=== PATIENT | male | born 1960 | race Caucasian/White ===

== ENCOUNTER 2022-11-04 18:52 | Inpatient (IN) | payer MEDICARE, MEDICAID ==
[~2022-11-04] VITALS: Ht 185.4 cm; Wt 154.7 kg
[2022-11-04] MEDS ORDERED: ACETAMINOPHEN 1000 MG/100 ML IV STA (19:20)
[2022-11-04] MEDS ORDERED: ACETAMINOPHEN 325 MG TAB PO ONE (19:45)
[2022-11-04 20:02] LABS: ALBUMIN 2.7 g/dL (3.5-5.0); ALBUMIN/GLOBULIN RATIO 0.5 (0.8-2.0); CALCIUM 9.5 mg/dL (8.4-10.2); CREATININE, SERUM 0.76 mg/dL (0.72-1.25)
[2022-11-04 20:13] LABS: BASOPHILS % 0.3 % (0.0-1.0); EOSINOPHILS # (AUTO) 0.1 (0.0-0.4); EOSINOPHILS % 0.8 % (0.0-6.0); HEMATOCRIT 37.5 % (38.2-49.6); LYMPHOCYTES # (AUTO) 4.2 (1.0-3.2); LYMPHOCYTES % 30.2 % (18.0-39.1); MEAN CORPUSCULAR HEMOGLOBIN 29.4 pg (28-32); MEAN CORPUSCULAR HGB CONC 29.3 g/dL (31-35); MEAN CORPUSCULAR VOLUME 100.3 fL (81-99); NEUTROPHILS # (AUTO) 8.5 (2.1-6.9); NEUTROPHILS % 61.1 % (38.7-80.0); PLATELET COUNT 273 x10e3/uL (140-360); RED BLOOD COUNT 3.74 x10e6/uL (4.3-5.7); RED CELL DISTRIBUTION WIDTH 15.2 % (11.7-14.4)
[2022-11-04] MEDS ORDERED: METHYLPREDNISOLONE SOD SUCC 40 MG/ML VIAL 1ML IV ONE (20:45)
[2022-11-04] MEDS ORDERED: DEXTROSE 50% SYRINGE 50 ML IV PRN (21:00)
[2022-11-04] MEDS ORDERED: SODIUM CHLORIDE FLUSH 10 ML SYR INJ PRN (21:00)
[2022-11-04] MEDS: INSULIN REGULAR, HUMAN 100 UNIT/1 ML SQ SCH (21:19)
[2022-11-04 22:00] VITALS: BP 129/67
[2022-11-04 22:34] VITALS: BP 129/67
[2022-11-04 23:41] VITALS: BP 129/67
[2022-11-04] MEDS: ALBUTEROL/IPRATROPIUM 3 ML NEB NEB SCH (23:45)
[2022-11-05] VITALS (7 sets, daily range): BP systolic 123–143; BP diastolic 54–70
[2022-11-05] MEDS: ALBUTEROL/IPRATROPIUM 3 ML NEB NEB SCH ×6 (02:15→22:55)
[2022-11-05] MEDS: INSULIN REGULAR, HUMAN 100 UNIT/1 ML SQ SCH ×4 (08:00→21:31)
[2022-11-05] MEDS ORDERED: ACETYLCYST200 MG/1 M NEB (08:01)
[2022-11-05] MEDS ORDERED: CYCLOBENZAPRINE10 MG PO (08:01)
[2022-11-05] MEDS ORDERED: LACTULOSE20 GM/30 M PO (08:01)
[2022-11-05] MEDS ORDERED: HYDROCODON-ACE1 EAC9 PO (08:01)
[2022-11-05] MEDS ORDERED: MULTIPLE VITAM1 EAC1 PO (08:01)
[2022-11-05] MEDS ORDERED: ZINC-22050 MG PO (08:01)
[2022-11-05] MEDS ORDERED: FUROSEMIDE40 MG PO (08:01)
[2022-11-05] MEDS ORDERED: FLOMAX0.4 MG PO (08:01)
[2022-11-05] MEDS ORDERED: TYLENOL325 MG PO (08:01)
[2022-11-05] MEDS ORDERED: FAMOTIDINE20 MG PO (08:01)
[2022-11-05] MEDS ORDERED: ONDANSETRON ODT4 MG PO (08:01)
[2022-11-05] MEDS ORDERED: NOVOLOG100 UNIT/1 SC (08:01)
[2022-11-05] MEDS ORDERED: ELIQUIS5 MG PO (08:01)
[2022-11-05] MEDS ORDERED: LANTUS 3ML100 UNITS/ SQ (08:01)
[2022-11-05] MEDS ORDERED: IPRAT-ALBUT 0.5-3 ML INH (08:01)
[2022-11-05] MEDS ORDERED: ATORVASTATIN CA20 MG PO (08:01)
[2022-11-05] MEDS ORDERED: MOVANTIK12.5 MG PO (08:01)
[2022-11-05] MEDS ORDERED: SENOKOT-S TABL1 EACH PO (08:01)
[2022-11-05] MEDS ORDERED: SODIUM CHLORIDE 0.9% 250ML 250 ML ONE (08:49)
[2022-11-05] MEDS ORDERED: PREDNISONE 20 MG TAB PO SCH (09:00)
[2022-11-05 09:49] LABS: BASOPHILS % 0.1 % (0.0-1.0); HEMATOCRIT 36.2 % (38.2-49.6); HEMOGLOBIN 10.6 g/dL (14.0-18.0); LYMPHOCYTES # (AUTO) 2.2 (1.0-3.2); LYMPHOCYTES % 21.2 % (18.0-39.1); MEAN CORPUSCULAR HEMOGLOBIN 29.5 pg (28-32); MEAN CORPUSCULAR HGB CONC 29.3 g/dL (31-35); MEAN CORPUSCULAR VOLUME 100.8 fL (81-99); MONOCYTES # (AUTO) 0.4 (0.2-0.8); MONOCYTES % 3.3 % (4.4-11.3); NEUTROPHILS # (AUTO) 7.8 (2.1-6.9); NEUTROPHILS % 74.5 % (38.7-80.0); PLATELET COUNT 253 x10e3/uL (140-360); RED BLOOD COUNT 3.59 x10e6/uL (4.3-5.7); RED CELL DISTRIBUTION WIDTH 14.8 % (11.7-14.4)
[2022-11-05 09:58] LABS: ALBUMIN 2.6 g/dL (3.5-5.0); ALBUMIN/GLOBULIN RATIO 0.5 (0.8-2.0); ANION GAP 14.1 mmol/L (8-16); CREATININE, SERUM 0.85 mg/dL (0.72-1.25)
[2022-11-05 10:09] LABS: POTASSIUM 5.1 mmol/L (3.5-5.1)
[2022-11-05] MEDS: DOCUSATE SODIUM 100 MG CAP PO SCH (10:12)
[2022-11-05] MEDS: SENNOSIDES 8.6 MG TAB PO SCH (10:12)
[2022-11-05] MEDS: APIXABAN 5 MG TABLET PO SCH ×2 (10:12→16:49)
[2022-11-05 10:23] LABS: CREATINE KINASE MB 1.7 ng/mL (0-5.0)
[2022-11-05] MEDS ORDERED: INSULIN REGULAR, HUMAN 100 UNIT/1 ML SQ ONE ×2 (10:30→14:30)
[2022-11-05] MEDS: HYDROCODONE/APAP 10MG-325MG TAB PO PRN (10:51)
[2022-11-05 15:54] LABS: CLARITY,URINE CLEAR (CLEAR); COLOR,URINE YELLOW (YELLOW); LEUKOCYTE ESTERASE ,URINE NEGATIVE (NEGATIVE); NITRITE,URINE NEGATIVE (NEGATIVE)
[2022-11-05 15:55] LABS: KETONES,URINE NEGATIVE (NEGATIVE); PROTEIN,URINE DIPSTICK NEGATIVE (NEGATIVE); URINE UROBILINOGEN 0.2 mg/dL (0.2 - 1)
[2022-11-05 16:12] LABS: EPITHELIAL CELLS,URINE FEW /LPF; WBC,URINE (MAN) 0-5 /HPF (0-5); YEAST,URINE FEW
[2022-11-05] MEDS: FAMOTIDINE 20 MG TAB PO SCH (16:49)
[2022-11-05] MEDS: FUROSEMIDE 40 MG TAB PO SCH (16:50)
[2022-11-05 17:38] LABS: CREATINE KINASE MB 1.6 ng/mL (0-5.0)
[2022-11-05] MEDS ORDERED: ATORVASTATIN 20 MG TAB PO SCH (21:00)
[2022-11-05] MEDS ORDERED: INSULIN GLARGINE 100 UNITS/ML VIAL SQ SCH (21:00)
[2022-11-05] MEDS ORDERED: TAMSULOSIN HCL 0.4 MG CAP PO SCH (21:00)
[2022-11-06] VITALS: BP 121/54
[2022-11-06] MEDS: ALBUTEROL/IPRATROPIUM 3 ML NEB NEB SCH ×3 (03:05→10:55)
[2022-11-06 04:00] VITALS: BP 131/63
[2022-11-06] MEDS: FUROSEMIDE 40 MG TAB PO SCH (05:45)
[2022-11-06 06:37] LABS: BASOPHILS % 0.3 % (0.0-1.0); EOSINOPHILS # (AUTO) 0.1 (0.0-0.4); EOSINOPHILS % 0.8 % (0.0-6.0); HEMATOCRIT 33.2 % (38.2-49.6); HEMOGLOBIN 9.6 g/dL (14.0-18.0); LYMPHOCYTES # (AUTO) 3.4 (1.0-3.2); LYMPHOCYTES % 39.7 % (18.0-39.1); MEAN CORPUSCULAR HEMOGLOBIN 29.1 pg (28-32); MEAN CORPUSCULAR HGB CONC 28.9 g/dL (31-35); MEAN CORPUSCULAR VOLUME 100.6 fL (81-99); MONOCYTES # (AUTO) 0.7 (0.2-0.8); MONOCYTES % 8.5 % (4.4-11.3); NEUTROPHILS # (AUTO) 4.3 (2.1-6.9); NEUTROPHILS % 50.2 % (38.7-80.0); PLATELET COUNT 238 x10e3/uL (140-360); RED CELL DISTRIBUTION WIDTH 14.7 % (11.7-14.4)
[2022-11-06 07:04] LABS: CALCIUM 8.8 mg/dL (8.4-10.2); CREATININE, SERUM 0.74 mg/dL (0.72-1.25)
[2022-11-06 07:30] LABS: CREATINE KINASE MB 1.5 ng/mL (0-5.0)
[2022-11-06] MEDS ORDERED: ACETAZOLAMIDE 250 MG TAB PO ONE (08:00)
[2022-11-06] MEDS ORDERED: ZITHROMAX500 MG PO (08:38)
[2022-11-06] MEDS ORDERED: IPRAT-ALBUT 0.5-3 ML NEB (08:41)
[2022-11-06] MEDS ORDERED: ALBUTEROL/IPRATROPIUM 3 ML NEB NEB PRN (08:45)
[2022-11-06] MEDS: FAMOTIDINE 20 MG TAB PO SCH (08:46)
[2022-11-06] MEDS: APIXABAN 5 MG TABLET PO SCH (08:47)
[2022-11-06] MEDS: DOCUSATE SODIUM 100 MG CAP PO SCH (08:48)
[2022-11-06] MEDS: SENNOSIDES 8.6 MG TAB PO SCH (08:48)
[2022-11-06] MEDS: INSULIN REGULAR, HUMAN 100 UNIT/1 ML SQ SCH ×2 (08:57→11:45)
[2022-11-06 08:58] VITALS: BP 120/64
[2022-11-06 09:00] VITALS: BP 120/64
[2022-11-06] MEDS ORDERED: AZITHROMYCIN 250 MG TAB PO SCH (09:00)
[2022-11-06 11:40] VITALS: BP 120/57
[2022-11-06] MEDS: HYDROCODONE/APAP 10MG-325MG TAB PO PRN (12:40)
== END 2022-11-06 13:11 | DRG 190 ==
LOC: ER 18:58 → ERHOLD 20:57 → MED/SURG3 11-05 01:10 → INTOOBSV 11-06 08:12 → OBSVTOIN 11-06 08:12
PROVIDERS: ADMIT Internal Medicine; ATTEND Internal Medicine
DX: J44.1 Chronic obstructive pulmonary disease with (acute) exacerbation (principal); J96.21 Acute and chronic respiratory failure with hypoxia; Z68.41 Body mass index [BMI] 40.0-44.9, adult; E11.69 Type 2 diabetes mellitus with other specified complication; E78.2 Mixed hyperlipidemia; K21.9 Gastro-esophageal reflux disease without esophagitis; N40.0 Benign prostatic hyperplasia without lower urinary tract symptoms; Z20.822 Contact with and (suspected) exposure to COVID-19; E66.01 Morbid (severe) obesity due to excess calories; Z86.718 Personal history of other venous thrombosis and embolism; Z79.01 Long term (current) use of anticoagulants; Z86.711 Personal history of pulmonary embolism; I25.10 Atherosclerotic heart disease of native coronary artery without angina pectoris; F41.9 Anxiety disorder, unspecified; F32.A Depression, unspecified; E11.40 Type 2 diabetes mellitus with diabetic neuropathy, unspecified; Z79.4 Long term (current) use of insulin; Z99.81 Dependence on supplemental oxygen
CPT/HCPCS: 36415; 71045; 80048; 80053; 81001; 82550; 82553; 82948; 83605; 83735; 83880; 84484; 85025; 87040; 93005; 94640; 94660; 94799; 99285; G0378; J0456; J0696; J1815; J1817; J2920; J7050; J7512

== ENCOUNTER 2024-04-17 10:46 | Inpatient (IN) | payer MEDICARE, MEDICAID ==
[~2024-04-17] VITALS: Ht 185.4 cm; Wt 156.9 kg
[~2024-04-17 10:46] MED LIST: ACETYLCYST200 MG/1 M NEB; ATORVASTATIN CA20 MG PO; CYCLOBENZAPRINE10 MG PO; ELIQUIS5 MG PO; FAMOTIDINE20 MG PO; FLOMAX0.4 MG PO; FUROSEMIDE40 MG PO; HYDROCODON-ACE1 EAC9 PO; IPRAT-ALBUT 0.5-3 ML INH; IPRAT-ALBUT 0.5-3 ML NEB; LACTULOSE20 GM/30 M PO; LANTUS 3ML100 UNITS/ SQ; MOVANTIK12.5 MG PO; MULTIPLE VITAM1 EAC1 PO; NOVOLOG100 UNIT/1 SC; ONDANSETRON ODT4 MG PO; SENOKOT-S TABL1 EACH PO; TYLENOL325 MG PO; ZINC-22050 MG PO; ZITHROMAX500 MG PO
[2024-04-17 10:50] VITALS: PULSE 98; RESP 26; TEMP 98.6
[2024-04-17 12:30] LABS: BASOPHILS % 0.3 % (0.0-1.0); EOSINOPHILS # (AUTO) 0.1 (0.0-0.4); EOSINOPHILS % 1.1 % (0.0-6.0); HEMATOCRIT 41.6 % (38.2-49.6); HEMOGLOBIN 12.2 g/dL (14.0-18.0); LYMPHOCYTES # (AUTO) 4.6 (1.0-3.2); LYMPHOCYTES % 39.8 % (18.0-39.1); MEAN CORPUSCULAR HEMOGLOBIN 29.2 pg (28-32); MEAN CORPUSCULAR HGB CONC 29.3 g/dL (31-35); MEAN CORPUSCULAR VOLUME 99.5 fL (81-99); MONOCYTES # (AUTO) 0.7 (0.2-0.8); MONOCYTES % 6.3 % (4.4-11.3); NEUTROPHILS % 52.1 % (38.7-80.0); PLATELET COUNT 196 x10e3/uL (140-360); RED BLOOD COUNT 4.18 x10e6/uL (4.3-5.7); RED CELL DISTRIBUTION WIDTH 14.4 % (11.7-14.4); WHITE BLOOD COUNT 11.47 x10e3/uL (4.8-10.8)
[2024-04-17 13:12] LABS: ALBUMIN 3.1 g/dL (3.5-5.0); ALBUMIN/GLOBULIN RATIO 0.7 (0.8-2.0); BILIRUBIN,TOTAL 0.3 mg/dL (0.2-1.2); CALCIUM 9.3 mg/dL (8.4-10.2); CREATININE, SERUM 0.5 mg/dL (0.72-1.25); TOTAL PROTEIN 7.6 g/dL (6.5-8.1)
[2024-04-17 13:46] LABS: TROPONIN I 0.02 ng/mL (0-0.300)
[2024-04-17 15:00] VITALS: BP 136/88; PULSE 100; RESP 20; TEMP 98.6; O2SAT 99
[2024-04-17] MEDS ORDERED: DEXTROSE 50% SYRINGE 50 ML IV PRN (17:30)
[2024-04-17 17:41] VITALS: BP 136/88; PULSE 100; RESP 20; TEMP 98.6; O2SAT 99
[2024-04-17] MEDS ORDERED: IOPAMIDOL 370 MG/ML 100 ML INFUS..BTL INJ ONE (17:46)
[2024-04-17 20:00] VITALS: BP 145/78; PULSE 101; RESP 22; TEMP 98.2; O2SAT 96
[2024-04-17 20:15] VITALS: PULSE 101; RESP 20; O2SAT 96
[2024-04-17] MEDS: INSULIN LISPRO 100 UNIT/1 ML 3ML VIAL SQ SCH (21:27)
[2024-04-17] MEDS: INSULIN GLARGINE 100 UNITS/ML VIAL SQ SCH (21:28)
[2024-04-17] MEDS ORDERED: LACTULOSE SYRUP 20 GM/30 ML UDC PO PRN (21:30)
[2024-04-17] MEDS: ATORVASTATIN 20 MG TAB PO SCH (21:34)
[2024-04-18] VITALS (9 sets, daily range): BP systolic 133–154; BP diastolic 64–87; PULSE 86–104; RESP 20–32; TEMP 97.8–98.7; O2SAT 97–100
[2024-04-18] MEDS: DEXAMETHASONE 4 MG TAB PO STA (04:51)
[2024-04-18 05:39] LABS: BASOPHILS % 0.3 % (0.0-1.0); EOSINOPHILS # (AUTO) 0.2 (0.0-0.4); EOSINOPHILS % 1.3 % (0.0-6.0); HEMATOCRIT 38.1 % (38.2-49.6); LYMPHOCYTES # (AUTO) 5.9 (1.0-3.2); LYMPHOCYTES % 49.4 % (18.0-39.1); MEAN CORPUSCULAR HEMOGLOBIN 28.9 pg (28-32); MEAN CORPUSCULAR HGB CONC 28.9 g/dL (31-35); MEAN CORPUSCULAR VOLUME 100.3 fL (81-99); MONOCYTES # (AUTO) 0.8 (0.2-0.8); MONOCYTES % 6.3 % (4.4-11.3); NEUTROPHILS # (AUTO) 5.1 (2.1-6.9); NEUTROPHILS % 42.4 % (38.7-80.0); PLATELET COUNT 213 x10e3/uL (140-360); RED CELL DISTRIBUTION WIDTH 14.5 % (11.7-14.4); WHITE BLOOD COUNT 11.98 x10e3/uL (4.8-10.8)
[2024-04-18 05:56] LABS: ANION GAP 11.9 mmol/L (8-16); CALCIUM 8.9 mg/dL (8.4-10.2); CREATININE, SERUM 0.7 mg/dL (0.72-1.25); POTASSIUM 3.9 mmol/L (3.5-5.1)
[2024-04-18 07:26] LABS: EOSINOPHILS % (MANUAL) 1 % (0-7); HYPOCHROMASIA SLIGHT; LYMPHOCYTES % (MANUAL) 47 % (19-48); MONOCYTES % (MANUAL) 4 % (3.4-9.0); NEUTROPHILS % (MANUAL) 48 % (40-74); PLATELET ESTIMATE ADEQUATE; PLATELET MORPHOLOGY COMMENT NORMAL; RBC MORPHOLOGY COMMENT ABNORMAL
[2024-04-18] MEDS: APIXABAN 5 MG TABLET PO SCH (08:29)
[2024-04-18] MEDS: FAMOTIDINE 20 MG TAB PO SCH (08:29)
[2024-04-18] MEDS: SENNA-S TABLET PO SCH (08:29)
[2024-04-18] MEDS: TAMSULOSIN HCL 0.4 MG CAP PO SCH (08:29)
[2024-04-18] MEDS: HYDROCODONE/APAP 5MG-325MG TAB PO PRN (08:29)
[2024-04-18] MEDS: Morphine 2mg Syringe 2 MG/ML SYR IV PRN (10:34)
[2024-04-19] VITALS (10 sets, daily range): BP systolic 116–150; BP diastolic 50–72; PULSE 92–111; RESP 17–22; TEMP 98.1–98.9; O2SAT 95–100
[2024-04-19 06:17] LABS: BASOPHILS % 0.2 % (0.0-1.0); EOSINOPHILS # (AUTO) 0.2 (0.0-0.4); EOSINOPHILS % 1.3 % (0.0-6.0); HEMATOCRIT 38.7 % (38.2-49.6); HEMOGLOBIN 10.9 g/dL (14.0-18.0); LYMPHOCYTES # (AUTO) 4.7 (1.0-3.2); LYMPHOCYTES % 41.5 % (18.0-39.1); MEAN CORPUSCULAR HEMOGLOBIN 28.7 pg (28-32); MEAN CORPUSCULAR HGB CONC 28.2 g/dL (31-35); MEAN CORPUSCULAR VOLUME 101.8 fL (81-99); MONOCYTES # (AUTO) 0.7 (0.2-0.8); MONOCYTES % 6.4 % (4.4-11.3); NEUTROPHILS # (AUTO) 5.6 (2.1-6.9); NEUTROPHILS % 49.6 % (38.7-80.0); PLATELET COUNT 225 x10e3/uL (140-360); RED CELL DISTRIBUTION WIDTH 14.3 % (11.7-14.4)
[2024-04-19 06:33] LABS: ALBUMIN 3.5 g/dL (3.5-5.0); ANION GAP 10.8 mmol/L (8-16); BILIRUBIN,TOTAL 0.3 mg/dL (0.2-1.2); CALCIUM 9.4 mg/dL (8.4-10.2); CREATININE, SERUM 0.71 mg/dL (0.72-1.25); POTASSIUM 4.8 mmol/L (3.5-5.1); TOTAL PROTEIN 7.1 g/dL (6.5-8.1)
[2024-04-19] MEDS: RIFAXIMIN 550 MG TABLET PO SCH (08:46)
[2024-04-19] MEDS: LACTULOSE SYRUP 20 GM/30 ML UDC PO SCH (08:47)
[2024-04-19] MEDS: BALSAM PERU/CASTOR OIL 60 GM OINT...G. TP SCH (14:37)
[2024-04-20] VITALS (25 sets, daily range): BP systolic 118–165; BP diastolic 47–118; PULSE 68–109; RESP 13–27; TEMP 97.6–99.4; O2SAT 93–100
[2024-04-20 05:36] LABS: BASOPHILS % 0.3 % (0.0-1.0); EOSINOPHILS # (AUTO) 0.2 (0.0-0.4); EOSINOPHILS % 1.6 % (0.0-6.0); HEMOGLOBIN 10.9 g/dL (14.0-18.0); LYMPHOCYTES # (AUTO) 4.8 (1.0-3.2); LYMPHOCYTES % 37.5 % (18.0-39.1); MEAN CORPUSCULAR HEMOGLOBIN 29.1 pg (28-32); MEAN CORPUSCULAR HGB CONC 28.7 g/dL (31-35); MEAN CORPUSCULAR VOLUME 101.6 fL (81-99); MONOCYTES # (AUTO) 0.9 (0.2-0.8); MONOCYTES % 6.9 % (4.4-11.3); NEUTROPHILS # (AUTO) 6.8 (2.1-6.9); PLATELET COUNT 212 x10e3/uL (140-360); RED BLOOD COUNT 3.74 x10e6/uL (4.3-5.7); RED CELL DISTRIBUTION WIDTH 14.1 % (11.7-14.4); WHITE BLOOD COUNT 12.85 x10e3/uL (4.8-10.8)
[2024-04-20 05:53] LABS: ALBUMIN 3.4 g/dL (3.5-5.0); ALBUMIN/GLOBULIN RATIO 0.9 (0.8-2.0); ANION GAP 12.5 mmol/L (8-16); BILIRUBIN,TOTAL 0.3 mg/dL (0.2-1.2); CALCIUM 9.8 mg/dL (8.4-10.2); CREATININE, SERUM 0.66 mg/dL (0.72-1.25); POTASSIUM 4.5 mmol/L (3.5-5.1)
[2024-04-20] MEDS: ALBUTEROL/IPRATROPIUM 3 ML NEB NEB STA (15:19)
[2024-04-20] MEDS: ALBUTEROL/IPRATROPIUM 3 ML NEB NEB SCH (15:19)
[2024-04-20 15:23] LABS: ABG PCO2 109 mmHg (35-45); ABG PH 7.25 (7.35-7.45); ABG PO2 129 mmHg (80-105)
[2024-04-20 15:24] LABS: ABG HCO3 48 mmol/L (22-26); ABG TCO2 50
[2024-04-20] MEDS: INSULIN LISPRO 100 UNIT/1 ML 3ML VIAL SQ SCH (16:15)
[2024-04-20 21:00] LABS: ABG PH 7.34 (7.35-7.45)
[2024-04-20 21:01] LABS: ABG PCO2 87 mmHg (35-45)
[2024-04-20 21:02] LABS: ABG HCO3 47 mmol/L (22-26); ABG PO2 100 mmHg (80-105); ABG TCO2 49
[2024-04-20] MEDS: INSULIN GLARGINE 100 UNITS/ML VIAL SQ SCH (21:24)
[2024-04-21] VITALS (64 sets, daily range): BP systolic 104–190; BP diastolic 50–124; PULSE 51–91; RESP 8–36; TEMP 98.1–99.1; O2SAT 90–100
[2024-04-21] MEDS: SODIUM CHLORIDE 0.9% 250ML 250 ML ONE (01:50)
[2024-04-21] MEDS: DEXMEDETOMIDINE 400MCG/NS100ML 100 ML IV PRN (02:27)
[2024-04-21 06:33] LABS: BASOPHILS % 0.2 % (0.0-1.0); EOSINOPHILS # (AUTO) 0.2 (0.0-0.4); HEMATOCRIT 36.1 % (38.2-49.6); HEMOGLOBIN 10.4 g/dL (14.0-18.0); LYMPHOCYTES # (AUTO) 4.4 (1.0-3.2); LYMPHOCYTES % 45.3 % (18.0-39.1); MEAN CORPUSCULAR HEMOGLOBIN 29.4 pg (28-32); MEAN CORPUSCULAR HGB CONC 28.8 g/dL (31-35); MONOCYTES # (AUTO) 0.7 (0.2-0.8); MONOCYTES % 7.1 % (4.4-11.3); NEUTROPHILS # (AUTO) 4.4 (2.1-6.9); PLATELET COUNT 201 x10e3/uL (140-360); RED BLOOD COUNT 3.54 x10e6/uL (4.3-5.7); RED CELL DISTRIBUTION WIDTH 13.6 % (11.7-14.4); WHITE BLOOD COUNT 9.73 x10e3/uL (4.8-10.8)
[2024-04-21 07:18] LABS: ALBUMIN 3.4 g/dL (3.5-5.0); ALBUMIN/GLOBULIN RATIO 0.9 (0.8-2.0); ANION GAP 11.4 mmol/L (8-16); BILIRUBIN,TOTAL 0.3 mg/dL (0.2-1.2); CALCIUM 9.7 mg/dL (8.4-10.2); CREATININE, SERUM 0.7 mg/dL (0.72-1.25); POTASSIUM 4.4 mmol/L (3.5-5.1)
[2024-04-21] MEDS: REMDESIVIR 100MG 100 MG in SODIUM CHLORIDE 0.9% 100 ML IV SCH (08:35)
[2024-04-21] MEDS ORDERED: DEXTROSE 50% SYRINGE 50 ML IV PRN (12:45)
[2024-04-21] MEDS: INSULIN REGULAR, HUMAN 3ML VL 100 UNIT in SODIUM CHLORIDE 0.9% 99 ML IV SCH (13:48)
[2024-04-21] MEDS: DEXAMETHASONE 4 MG TAB PO SCH (17:38)
[2024-04-22] VITALS (22 sets, daily range): BP systolic 109–139; BP diastolic 53–119; PULSE 49–99; RESP 12–28; TEMP 97.6–98.2; O2SAT 93–100
[2024-04-22 06:59] LABS: BASOPHILS % 0.1 % (0.0-1.0); EOSINOPHILS % 0.1 % (0.0-6.0); HEMATOCRIT 36.5 % (38.2-49.6); HEMOGLOBIN 11.2 g/dL (14.0-18.0); LYMPHOCYTES # (AUTO) 2.6 (1.0-3.2); LYMPHOCYTES % 38.1 % (18.0-39.1); MEAN CORPUSCULAR HEMOGLOBIN 29.6 pg (28-32); MEAN CORPUSCULAR HGB CONC 30.7 g/dL (31-35); MEAN CORPUSCULAR VOLUME 96.3 fL (81-99); MONOCYTES # (AUTO) 0.2 (0.2-0.8); MONOCYTES % 2.9 % (4.4-11.3); NEUTROPHILS % 58.5 % (38.7-80.0); PLATELET COUNT 153 x10e3/uL (140-360); RED BLOOD COUNT 3.79 x10e6/uL (4.3-5.7); RED CELL DISTRIBUTION WIDTH 13.8 % (11.7-14.4); WHITE BLOOD COUNT 6.82 x10e3/uL (4.8-10.8)
[2024-04-22 07:17] LABS: CALCIUM 9.3 mg/dL (8.4-10.2); CREATININE, SERUM 0.68 mg/dL (0.72-1.25); MAGNESIUM 1.7 MG/DL (1.3-2.1)
[2024-04-22] MEDS: MUPIROCIN 2% OINT 22 GM TUBE TOP SCH (08:15)
[2024-04-22 09:04] LABS: LYMPHOCYTES % (MANUAL) 35 % (19-48); MONOCYTES % (MANUAL) 2 % (3.4-9.0); NEUTROPHILS % (MANUAL) 63 % (40-74)
[2024-04-22 09:05] LABS: HYPOCHROMASIA SLIGHT; PLATELET ESTIMATE ADEQUATE; PLATELET MORPHOLOGY COMMENT FEW LARGE; RBC MORPHOLOGY COMMENT NORMAL
[2024-04-22] MEDS: REMDESIVIR 100MG 100 MG in SODIUM CHLORIDE 0.9% 100 ML IV SCH (13:55)
[2024-04-22] MEDS ORDERED: SODIUM CHLORIDE 0.9% 250ML 250 ML ONE (17:10)
[2024-04-22] MEDS: INSULIN GLARGINE 100 UNITS/ML VIAL SQ SCH (21:52)
[2024-04-23] VITALS (27 sets, daily range): BP systolic 71–148; BP diastolic 47–94; PULSE 47–103; RESP 11–33; TEMP 97.4–98.3; O2SAT 88–100
[2024-04-23] MEDS: DEXAMETHASONE 4 MG TAB PO SCH (18:53)
[2024-04-24] VITALS (30 sets, daily range): BP systolic 87–142; BP diastolic 53–98; PULSE 48–117; RESP 18–36; TEMP 97.8–98.8; O2SAT 95–100
[2024-04-24 06:25] LABS: BASOPHILS % 0.1 % (0.0-1.0); HEMOGLOBIN 10.3 g/dL (14.0-18.0); LYMPHOCYTES # (AUTO) 2.4 (1.0-3.2); LYMPHOCYTES % 31.9 % (18.0-39.1); MEAN CORPUSCULAR HEMOGLOBIN 29.3 pg (28-32); MEAN CORPUSCULAR HGB CONC 30.3 g/dL (31-35); MEAN CORPUSCULAR VOLUME 96.6 fL (81-99); MONOCYTES # (AUTO) 0.4 (0.2-0.8); MONOCYTES % 4.7 % (4.4-11.3); NEUTROPHILS # (AUTO) 4.7 (2.1-6.9); PLATELET COUNT 176 x10e3/uL (140-360); RED BLOOD COUNT 3.52 x10e6/uL (4.3-5.7); RED CELL DISTRIBUTION WIDTH 14.2 % (11.7-14.4)
[2024-04-24 06:56] LABS: ANION GAP 11.8 mmol/L (8-16); CREATININE, SERUM 0.68 mg/dL (0.72-1.25); POTASSIUM 4.8 mmol/L (3.5-5.1)
[2024-04-24] MEDS: ALBUTEROL/IPRATROPIUM 3 ML NEB INH PRN (11:44)
[2024-04-24] MEDS: HYDROCODONE/APAP 7.5MG-325MG 1 EA TAB PO PRN (16:06)
[2024-04-24] MEDS: INSULIN GLARGINE 100 UNITS/ML VIAL SQ SCH (20:45)
[2024-04-25] VITALS (18 sets, daily range): BP systolic 110–157; BP diastolic 53–91; PULSE 62–110; RESP 14–35; TEMP 97–98.8; O2SAT 95–100
[2024-04-25 06:14] LABS: BASOPHILS % 0.1 % (0.0-1.0); HEMATOCRIT 35.4 % (38.2-49.6); HEMOGLOBIN 10.5 g/dL (14.0-18.0); LYMPHOCYTES # (AUTO) 4.1 (1.0-3.2); LYMPHOCYTES % 38.4 % (18.0-39.1); MEAN CORPUSCULAR HEMOGLOBIN 28.8 pg (28-32); MEAN CORPUSCULAR HGB CONC 29.7 g/dL (31-35); MEAN CORPUSCULAR VOLUME 97.3 fL (81-99); MONOCYTES # (AUTO) 0.7 (0.2-0.8); MONOCYTES % 6.5 % (4.4-11.3); NEUTROPHILS # (AUTO) 5.8 (2.1-6.9); NEUTROPHILS % 54.5 % (38.7-80.0); PLATELET COUNT 212 x10e3/uL (140-360); RED BLOOD COUNT 3.64 x10e6/uL (4.3-5.7); RED CELL DISTRIBUTION WIDTH 14.4 % (11.7-14.4); WHITE BLOOD COUNT 10.72 x10e3/uL (4.8-10.8)
[2024-04-25 06:47] LABS: ANION GAP 12.5 mmol/L (8-16); CALCIUM 8.6 mg/dL (8.4-10.2); CREATININE, SERUM 0.66 mg/dL (0.72-1.25); MAGNESIUM 1.9 MG/DL (1.3-2.1); POTASSIUM 4.5 mmol/L (3.5-5.1)
[2024-04-25] MEDS: INSULIN LISPRO 100 UNIT/1 ML 3ML VIAL SQ ONE (12:23)
[2024-04-25] MEDS: INSULIN LISPRO 100 UNIT/1 ML 3ML VIAL SQ SCH ×2 (16:30→17:52)
[2024-04-26] VITALS (13 sets, daily range): BP systolic 106–151; BP diastolic 48–80; PULSE 66–94; RESP 11–30; TEMP 97.7–98; O2SAT 89–100
[2024-04-26 06:13] LABS: BASOPHILS % 0.3 % (0.0-1.0); EOSINOPHILS # (AUTO) 0.2 (0.0-0.4); EOSINOPHILS % 1.7 % (0.0-6.0); HEMATOCRIT 38.3 % (38.2-49.6); HEMOGLOBIN 11.3 g/dL (14.0-18.0); LYMPHOCYTES # (AUTO) 5.9 (1.0-3.2); LYMPHOCYTES % 52.9 % (18.0-39.1); MEAN CORPUSCULAR HEMOGLOBIN 29.3 pg (28-32); MEAN CORPUSCULAR HGB CONC 29.5 g/dL (31-35); MEAN CORPUSCULAR VOLUME 99.2 fL (81-99); MONOCYTES # (AUTO) 0.8 (0.2-0.8); MONOCYTES % 7.2 % (4.4-11.3); NEUTROPHILS # (AUTO) 4.2 (2.1-6.9); NEUTROPHILS % 37.6 % (38.7-80.0); PLATELET COUNT 223 x10e3/uL (140-360); RED BLOOD COUNT 3.86 x10e6/uL (4.3-5.7); RED CELL DISTRIBUTION WIDTH 14.7 % (11.7-14.4); WHITE BLOOD COUNT 11.15 x10e3/uL (4.8-10.8)
[2024-04-26 06:32] LABS: ANION GAP 12.6 mmol/L (8-16); CALCIUM 9.1 mg/dL (8.4-10.2); CREATININE, SERUM 0.65 mg/dL (0.72-1.25); POTASSIUM 4.6 mmol/L (3.5-5.1)
[2024-04-26 11:58] LABS: EOSINOPHILS % (MANUAL) 2 % (0-7); LYMPHOCYTES % (MANUAL) 47 % (19-48); MONOCYTES % (MANUAL) 6 % (3.4-9.0); NEUTROPHILS % (MANUAL) 45 % (40-74)
[2024-04-26 11:59] LABS: PLATELET ESTIMATE ADEQUATE; PLATELET MORPHOLOGY COMMENT NORMAL; RBC MORPHOLOGY COMMENT NORMAL
== END 2024-04-26 14:38 | DRG 177 ==
LOC: ER 10:49 → ERHOLD 12:21 → INTOOBSV 12:21 → MED/SURG2 15:00 → OBSVTOIN 04-18 14:56 → ICU 04-20 16:30
PROVIDERS: ADMIT Internal Medicine; ATTEND Internal Medicine
PROC: 02HV33Z Insertion of Infusion Device into Superior Vena Cava, Percutaneous Approach (ICD-10-PCS; principal; 2024-04-17)
PROC: B548ZZA Ultrasonography of Superior Vena Cava, Guidance (ICD-10-PCS; 2024-04-17)
PROC: 4A033R1 Measurement of Arterial Saturation, Peripheral, Percutaneous Approach (ICD-10-PCS; 2024-04-20)
PROC: 4A033R1 Measurement of Arterial Saturation, Peripheral, Percutaneous Approach (ICD-10-PCS; 2024-04-20)
PROC: 5A09357 Assistance with Respiratory Ventilation, Less than 24 Consecutive Hours, Continuous Positive Airway Pressure (ICD-10-PCS; 2024-04-20)
PROC: XW043E5 Introduction of Remdesivir Anti-infective into Central Vein, Percutaneous Approach, New Technology Group 5 (ICD-10-PCS; 2024-04-21)
PROC: 5A09357 Assistance with Respiratory Ventilation, Less than 24 Consecutive Hours, Continuous Positive Airway Pressure (ICD-10-PCS; 2024-04-21)
PROC: 5A09357 Assistance with Respiratory Ventilation, Less than 24 Consecutive Hours, Continuous Positive Airway Pressure (ICD-10-PCS; 2024-04-22)
PROC: 5A09357 Assistance with Respiratory Ventilation, Less than 24 Consecutive Hours, Continuous Positive Airway Pressure (ICD-10-PCS; 2024-04-23)
PROC: 5A09357 Assistance with Respiratory Ventilation, Less than 24 Consecutive Hours, Continuous Positive Airway Pressure (ICD-10-PCS; 2024-04-24)
PROC: 5A09357 Assistance with Respiratory Ventilation, Less than 24 Consecutive Hours, Continuous Positive Airway Pressure (ICD-10-PCS; 2024-04-25)
DX: U07.1 COVID-19 (principal); J12.82 Pneumonia due to coronavirus disease 2019; J96.21 Acute and chronic respiratory failure with hypoxia; J96.22 Acute and chronic respiratory failure with hypercapnia; R53.2 Functional quadriplegia; J15.9 Unspecified bacterial pneumonia; I13.0 Hypertensive heart and chronic kidney disease with heart failure and stage 1 through stage 4 chronic kidney disease, or unspecified chronic kidney disease; Z68.42 Body mass index [BMI] 45.0-49.9, adult; I50.32 Chronic diastolic (congestive) heart failure; J98.11 Atelectasis; E72.20 Disorder of urea cycle metabolism, unspecified; E66.2 Morbid (severe) obesity with alveolar hypoventilation; J98.6 Disorders of diaphragm; E11.65 Type 2 diabetes mellitus with hyperglycemia; E11.22 Type 2 diabetes mellitus with diabetic chronic kidney disease; N18.9 Chronic kidney disease, unspecified; J44.9 Chronic obstructive pulmonary disease, unspecified; Z99.81 Dependence on supplemental oxygen; E11.51 Type 2 diabetes mellitus with diabetic peripheral angiopathy without gangrene; E11.42 Type 2 diabetes mellitus with diabetic polyneuropathy; E11.59 Type 2 diabetes mellitus with other circulatory complications; Z79.84 Long term (current) use of oral hypoglycemic drugs; K76.0 Fatty (change of) liver, not elsewhere classified; K74.69 Other cirrhosis of liver; Z71.3 Dietary counseling and surveillance; I25.10 Atherosclerotic heart disease of native coronary artery without angina pectoris; S31.000A Unspecified open wound of lower back and pelvis without penetration into retroperitoneum, initial encounter; X58.XXXA Exposure to other specified factors, initial encounter; T38.0X5A Adverse effect of glucocorticoids and synthetic analogues, initial encounter; Y92.230 Patient room in hospital as the place of occurrence of the external cause; R53.83 Other fatigue; R41.82 Altered mental status, unspecified; R45.1 Restlessness and agitation; D64.9 Anemia, unspecified; K21.9 Gastro-esophageal reflux disease without esophagitis; Z86.711 Personal history of pulmonary embolism; Z79.01 Long term (current) use of anticoagulants
CPT/HCPCS: 0223U; 36415; 36569; 36600; 71045; 71260; 80048; 80053; 82140; 82805; 82948; 83036; 83735; 83880; 84443; 84484; 85025; 94660; 94799; 96372; 99252; 99285; G0378; J0248; J0696; J1815; J2270; J7050; Q9967; U0002